=== PATIENT | female | born 1965 | race Two or more races ===

== ENCOUNTER 2018-07-18 09:13 | Outpatient (CLI) | payer OTHER | END 2018-07-18 10:00 | disposition home or self-care (01) | LOC: NUCLEAR 09:13 | DX: I77.71 Dissection of carotid artery (principal) ==

== ENCOUNTER 2023-11-17 07:44 | Outpatient (CLI) | payer OTHER | END 2023-11-17 07:45 | disposition home or self-care (01) | LOC: NUCLEAR 07:44 | PROVIDERS: ATTEND Psychiatry & Neurology Clinical Neurophysiology | DX: I65.23 Occlusion and stenosis of bilateral carotid arteries (principal) ==

== ENCOUNTER 2023-11-17 09:48 | Outpatient (CLI) | payer OTHER | END 2023-11-17 09:54 | disposition home or self-care (01) | LOC: MRI 09:48 | PROVIDERS: ATTEND Psychiatry & Neurology Clinical Neurophysiology | DX: I63.30 Cerebral infarction due to thrombosis of unspecified cerebral artery (principal) | CPT/HCPCS: 70551 ==

== ENCOUNTER 2024-10-25 09:39 | Outpatient (CLI) | payer OTHER | END 2024-10-25 09:40 | disposition home or self-care (01) | LOC: NUCLEAR 09:39 | PROVIDERS: ATTEND Psychiatry & Neurology Clinical Neurophysiology | DX: I77.71 Dissection of carotid artery (principal) ==

== ENCOUNTER 2025-07-05 11:21 | Outpatient (CLI) | payer OTHER | END 2025-07-05 11:30 | disposition home or self-care (01) | LOC: MRI 11:21 | PROVIDERS: ATTEND Psychiatry & Neurology Clinical Neurophysiology | DX: R51.9 Headache, unspecified (principal); I63.30 Cerebral infarction due to thrombosis of unspecified cerebral artery | CPT/HCPCS: 70551 ==